=== PATIENT | male | born 1975 ===

== ENCOUNTER 2017-07-20 12:26 | Observation (INO) | payer OTHER ==
[2017-07-20] MEDS ORDERED: Nitroglycerin TAB 0.4 MG* 0.4 MG TAB SL PRN (14:11)
[2017-07-20] MEDS ORDERED: Ondansetron INJ* 2 MG/ML VIAL IV PRN (16:29)
[2017-07-20] MEDS: Acetaminophen TAB* 325 MG PO PRN (17:00)
--- NOTE | 2017-07-20 19:51 | HP ---
CC: Dr. Melara * [facility] MEDICINE HISTORY AND PHYSICAL: DATE OF ADMISSION: 07/20/17 PRIMARY CARE PHYSICIAN: Dr. Melara. ATTENDING PHYSICIAN: Dr. Dipak Navarro * (dictation provided by Abbie Mcdonald NP) CHIEF COMPLAINT: Chest pain. HISTORY OF PRESENT ILLNESS: Mr. Potter is a 41-year-old male with a past medical history of obstructive sleep apnea, on CPAP, who presents to the hospital today from [facility] in transfer out of concern for chest pain. Mr. Potter states he has been in his normal state of health until 3 a.m. this morning. He was awoken from sleep with left mid chest pain. He was able to go back to sleep briefly. He woke back up at 3:30 a.m. He took some Tums that did not really have any effect. He tried to change his position in the bed. This also did not really have much of an effect. He describes the pain as being 5/10 in intensity, as a tight burning pain. 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 At about 8: 30, he was working with children and he was more active than he had been all morning and at that point, he became nauseous and had radiating pain in to his back. He felt his heart was racing and it was hard to breathe. He became clammy and diaphoretic. By 9:15, his came and drove him to the hospital. He was given nitroglycerin and aspirin and with this, he had resolution of his symptoms. He states that at this point he has some intermittent discomfort that radiates in to his back that is very mild. He also feels tired and a bit fuzzy. In the emergency room at [facility], the patient was found to have a troponin that was 0.001 and an EKG, which showed no evidence of ischemia. Based on that concerning story, he was transferred to [facility] for a stress testing and further workup as needed. Here at our hospital, his second troponin has been 0.01 and EKG continues to show no evidence of ischemia. PAST MEDICAL HISTORY: 1. Obstructive sleep apnea, with CPAP. 2. History of Lyme disease, treated in . 3. Vasectomy. 4. Rotator cuff repair in 2016. MEDICATIONS: Zinc tabs p.o. daily. ALLERGIES: SEAFOOD, CONTRAST DYE, and ERYTHROMYCIN. FAMILY HISTORY: The patient reports his mom at 63, she had an [place] in her 40s with a CABG. His dad is alive and well, he has a history of hypertension. There are several members in the family with diabetes. SOCIAL HISTORY: The patient is not a smoker. No report of drug use. He drinks about 4 drinks per week. He works as physical therapist. He states his is his healthcare proxy; her name is Vin. REVIEW OF SYSTEMS: A 14-point review of systems was reviewed with Mr. Potter and all those not mentioned above were negative. PHYSICAL EXAMINATION GENERAL: Mr. Potter is sitting in the chair. He is in no acute distress. VITAL SIGNS: Temperature 98.9, pulse rate 72, respiratory rate 16, O2 saturation 99% on room air, blood pressure 150/90. LUNGS: Clear to auscultation bilaterally with no accessory muscle use and good aeration. HEART: S1, S2. No murmur, rub, or gallop, and regular. ABDOMEN: Soft, nontender with bowel sounds positive x4. EXTREMITIES: No cyanosis or edema. NEURO: He is alert, he is oriented x3. He moves all extremities equally. There is no facial asymmetry or focal weakness. Extraocular movements are intact. SKIN: Intact. LABORATORY DATA: Troponin here is 0.01. I note that the labs from [facility] show a normal hemoglobin. The BUN and creatinine were not able to be processed there. There was no lipid profile checked there and no hemoglobin A1c. ASSESSMENT AND PLAN: Mr. Potter is a 41-year-old male with a past medical history of obstructive sleep apnea and and a positive family history with mom having an myocardial infarction in her 40s, who presents to the hospital today with concern for being awoken from sleep with chest pain that seemed to be worse during the morning especially with activity. Our plans are for observation in the hospital for the followin. Chest pain: This patient's first 2 troponins are negative. However, his story is quite concerning. Plan to observe overnight for stress test in a.m. He will go on for an exercise nuclear medicine test. The patient states he will be able to walk on the treadmill. 2. Obstructive sleep apnea. The patient will continue to use hospital CPAP overnight. 3. Code status. Full code. 4. DVT prophylaxis, with early mobility. 5. Disposition. To telemetry floor. TIME SPENT: Approximately 60 minutes was spent on the admission of this patient , and more than half of the time was spent with the patient at the bedside reviewing the events leading up to this hospitalization, performing the physical examination, and reviewing my plan of care. ABBIE MCDONALD NP [id number]/[facility] #: [id number] TERRY
[2017-07-21 06:24] LABS: EGFR Non-African American 100.7 (>60)
[2017-07-21] MEDS: Acetaminophen TAB* 325 MG PO PRN (10:28)
--- NOTE | 2017-07-21 11:06 | PN ---
Subjective Date of Service: 07/21/17 Interval History: Mr. Potter denies complaint and is eager for discharge to home. Objective Active Medications: Acetaminophen (Tylenol Tab*) 650 mg PO Q6H PRN Nitroglycerin (Nitroglycerin Tab 0.4 Mg*) 0.4 mg SL Q5M PRN Ondansetron HCl (Zofran Inj*) 4 mg IV Q6H PRN Vital Signs: Temp Pulse Resp BP Pulse Ox 97.8 F 61 14 128/72 95 07/21/17 07:28 07/21/17 07:28 07/21/17 07:28 07/21/17 07:28 07/21/17 07:28 Oxygen Devices in Use Now: None Appearance: Male lying in bed in NAD Eyes: No Scleral Icterus Ears/Nose/Mouth/Throat: Mucous Membranes Moist Neck: Trachea Midline Respiratory: Symmetrical Chest Expansion and Respiratory Effort, Clear to Auscultation Cardiovascular: NL Sounds; No Murmurs; No JVD, No Edema Abdominal: NL Sounds; No Tenderness; No Distention Lymphatic: No Cervical Adenopathy Extremities: No Edema Skin: No Rash or Ulcers Neurological: Alert and Oriented x 3, NL Muscle Strength and Tone Nutrition: Taking PO's Result Diagrams: 07/21/17 05:34 Assess/Plan/Problems-Billing Assessment: Mr. Potter is a 41 yo male with no significant PMH who was admitted on 07/20/17 with chest pain. - Patient Problems (1) Chest pain Comment: - Trops negative. EKG without evidence of ischemia. - Stress test low risk but does show a very small area of reversible ischemia. - Plan for aspirin with low dose metoprolol and statin until follow up with cardiology outpatient. (2) DVT prophylaxis Comment: - SCDs. (3) Full code status Comment: Status and Disposition: OBV. Discharge to home.
[2017-07-21 12:21] VITALS: BP 121/78
--- NOTE | 2017-07-21 14:23 | RAD ---
Edited for charges. INDICATION: Chest pain. Family history of heart disease. COMPARISON: No relevant prior exams available on the [facility] for comparison. TECHNIQUE: 10.600 mCi of Tc-99m Myoview were administered IV. SPECT images of the heart were obtained. Later on the same day. Under the direction of Dr. Powers, an exercise stress test was performed. The patient achieved a peak heart rate of 179 bpm, 93 % of the age- predicted maximum. Subsequently, the patient was given an IV injection of 25.430 mCi Tc- 99m Myoview. SPECT images of the heart were obtained and a gated wall motion study was performed. FINDINGS: Gated wall motion images were obtained at stress and demonstrate mild hypokinesia at the apical and mid segments of the anterior wall. The calculated left ventricular ejection fraction is 60 % at stress. Estimated LEFT ventricular end diastolic volume is 77 mL. TID 0.84. Artifact from inferior gut activity noted. Solitary small focus of decreased perfusion at the mid to basilar anterior wall at stress with reversal at rest concerning for potential ischemia. IMPRESSION: 1. Solitary small focus of decreased perfusion at the mid to basilar anterior wall at stress with reversal at rest concerning for potential ischemia. 2. Mild apical to mid anterior wall hypokinesia. 3. Normal range estimated LEFT ventricular ejection fraction. ASSESSMENT: Low risk based on nuclear portion. Based on imaging criteria from ACC/AHA 2002 Guideline Update for the Management of Patients With Chronic Stable Angina Table 23. Noninvasive Risk Stratification. MTDD
--- NOTE | 2017-07-22 00:50 | DS ---
CC: Dr. Melara * [facility] MEDICINE DISCHARGE SUMMARY: DATE OF ADMISSION: 07/20/17 DATE OF DISCHARGE: 07/21/17 PRIMARY CARE PHYSICIAN: Dr. Melara. ATTENDING PHYSICIAN: Dipak Navarro MD * (dictation provided by Abbie Mcdonald NP). PRIMARY DIAGNOSIS: Chest pain. SECONDARY DIAGNOSES: 1. Obstructive sleep apnea with CPAP. 2. History of Lyme disease, treated in . 3. Vasectomy. 4. Rotator cuff repair in 2015. MEDICATIONS AT TIME OF DISCHARGE: 1. Aspirin 81 mg p.o. daily. 2. Zinc daily. 3. Metoprolol tartrate 12.5 mg p.o. b.i.d. 4. Atorvastatin 10 mg p.o. daily. HOSPITAL COURSE: Mr. Potter is a 41-year-old male with a past medical history of obstructive sleep apnea, who presented to the hospital on 07/20/17 with a complaint of chest pain. Please see the dictated H and P from myself for complete details. In brief, the patient reports being awoke at 3 a.m. with chest pain and having it through the morning and worsened by exercise. In the emergency room at [facility], he had a normal troponin, but based on his symptoms he was transitioned to [facility] for further evaluation and care. Mr. Potter had 2 additional troponins, which were also negative. His EKG did not demonstrate any evidence of ischemia. He went on for a nuclear medicine stress test, which was read as follows; "solitary small focus of decreased perfusion at the [id number] anterior wall reversible at rest concerning for potential ischemia, mild aexiar-lv-auh anterior wall hypokinesis , normal ranges and estimated left ventricular ejection fraction, low risk based on nuclear portion." Mr. Potter has remained chest pain free throughout this hospitalization. I reviewed the results of the stress test with Dr. Doshi from Cardiology. He states that based on the fact that it is low risk, but the patient does not need further testing at this time, but that he should go on medical management for concern of coronary artery disease with followup of Cardiology outpatient. The patient is, therefore, to be discharged to home newly on aspirin, low-dose metoprolol, and a statin. I will note that the patient had concern for lipemic blood on draw at [facility]; however, on our check, the patient's triglycerides were 207, cholesterol 125, LDL 58, and HDL 25.6. Family were concerned about this report from [place] of the lipemic blood and therefore, I have asked for a re-draw on 07/27/17 when the patient follows up with his primary care. DISPOSITION: To home. DIET: Low-fat, low-salt. ACTIVITY: As tolerated. FOLLOWUP PLANS: 1. Please follow up with Dr. Melara on 07/27/17, an appointment has been made. 2. Please follow up with fasting lipid profile. TIME SPENT: Approximately 60 minutes were spent on the discharge of this patient, more than half time spent with the patient at the bedside reviewing the events leading up to this hospitalization and during this hospitalization, performing the physical examination, and reviewing the plan of care. ABBIE MCDONALD NP [id number]/[facility] #: [id number] TERRY
== END 2017-07-21 17:45 | disposition home or self-care (01) ==
LOC: MEDTELE 13:56
PROVIDERS: ADMIT Internal Medicine; ATTEND Internal Medicine
DX: R07.9 Chest pain, unspecified (principal); G47.33 Obstructive sleep apnea (adult) (pediatric); Z86.19 Personal history of other infectious and parasitic diseases; Z98.52 Vasectomy status; Z79.82 Long term (current) use of aspirin; Z98.890 Other specified postprocedural states
CPT/HCPCS: 36415; 78452; 80048; 80061; 83036; 84484; 93005; 93017; A9270-GY; A9502; G0378